=== PATIENT | female | born 1955 | race Caucasian/White ===

== ENCOUNTER 2017-08-19 08:31 | Inpatient (IN) | payer OTHER ==
[~2017-08-19] VITALS: Ht 154.9 cm; Wt 85.4 kg
[~2017-08-19 08:31] MED LIST: AMLO10TA55 PO; ASPI-825 PO; ATOR40TA28 PO; CARV25TA32 PO; FURO20 PO; GLIP10TA9 PO; HYDR12.530 PO; LISI20TA PO; LOSA50TA37 PO; METF500T4 PO; MULT1CAP32 PO; SLOWK8 PO; TRAM50TA4 PO
[2017-08-19] MEDS ORDERED: CLOP75 PO (08:40)
[2017-08-19] MEDS ORDERED: PANT40TA25 PO (08:40)
[2017-08-19 09:19] LABS: BASOPHILS % (AUTO) 0.3 % (0.0-2.0); EOSINOPHILS % (AUTO) 4.3 % (1.0-6.0); HEMATOCRIT 35.6 % (36-46); LYMPHOCYTES # (AUTO) 1.7 K/uL (1.0-4.8); LYMPHOCYTES % (AUTO) 19.9 % (22.0-44.0); MEAN CORPUSCULAR HEMOGLOBIN 29.4 pg (26.0-34.0); MEAN CORPUSCULAR HGB CONC 33.6 G/dL (31.0-37.0); MEAN CORPUSCULAR VOLUME 88 fL (80-100); MONOCYTES # (AUTO) 0.5 K/uL (0.1-1.0); MONOCYTES % (AUTO) 5.8 % (2.0-9.0); NEUTROPHILS % (AUTO) 69.7 % (40.0-70.0); PLATELET COUNT (AUTO) 248 K/uL (150-450); RED BLOOD CELL COUNT(AUTO) 4.07 MIL/uL (4.00-5.20); RED CELL DISTRIBUTION WIDTH 14.9 % (11.5-14.5); WHITE BLOOD COUNT (AUTO) 8.6 K/uL (4.5-11.0)
[2017-08-19 09:31] LABS: ANION GAP 11 mmol/L (8-16); CALCIUM, TOTAL 8.5 mg/dL (8.8-10.5); CARBON DIOXIDE 23 mmol/L (22-29); CHLORIDE 105 mmol/L (98-107); CREATININE 1.45 mg/dL (0.60-1.30); GLOMERULAR FILTR. RATE CALC 36 mL/min (>60); POTASSIUM 4.8 mmol/L (3.5-5.1); SODIUM SERUM 139 mmol/L (136-145); UREA NITROGEN, BLOOD 27 mg/dL (7-18)
[2017-08-19 09:36] LABS: ALANINE AMINOTRANSFERASE 26 U/L (12-78); ALBUMIN 3.3 g/dL (3.4-5.0); ASPARTATE AMINOTRANSFERASE 20 U/L (15-37); BILIRUBIN,TOTAL 0.5 mg/dL (0.1-1.0); CREATINE KINASE, TOTAL 56 U/L (26-192); TOTAL PROTEIN, SERUM 6.8 g/dL (6.4-8.2)
[2017-08-19 09:51] LABS: PROTHROMBIN TIME 10.7 SEC (9.4-11.6)
[2017-08-19 09:57] LABS: B-TYPE NATRIURETIC PEPTIDE 628 pg/mL (0-100)
[2017-08-19 10:00] LABS: APPEARANCE,URINE CLEAR (CLEAR); GLUCOSE, URINE (UA) NEGATIVE (NEGATIVE); KETONES,URINE NEGATIVE (NEGATIVE); LEUKOCYTE ESTERASE ,URINE NEGATIVE (NEGATIVE); OCCULT BLOOD,URINE NEGATIVE (NEGATIVE); PROTEIN,URINE SEE CONFIRM (NEGATIVE)
[2017-08-19] MEDS ORDERED: FUROSEMIDE 40 MG/4 ML VIAL IVP ONE (10:00)
[2017-08-19] MEDS ORDERED: NITROGLYCERIN 2% (1 GM=INCH) PACKET TP ONE (10:00)
[2017-08-19 10:02] LABS: ADD UA MICROSCOPIC YES; SULFOSALICYLIC ACID,URINE 3+ (Negative)
[2017-08-19 10:10] LABS: GLUCOSE,POINT OF CARE 178 MG/DL (70-110)
[2017-08-19 10:10] LABS: RBC,URINE None Seen /HPF (0-2); SQUAMOUS EPITHELIAL CELL,UR Moderate /LPF (None Seen); WBC,URINE None Seen /HPF (0-5)
[2017-08-19 14:15] VITALS: BP 147/57
[2017-08-19] MEDS ORDERED: FURO40 PO (14:32)
[2017-08-19] MEDS ORDERED: INFLUENZA VIRUS VACCINE QVS 2017-18 (3YR+)/PF 60 MCG/0.5 ML SYRINGE IM ONE (14:45)
[2017-08-19 16:53] VITALS: BP 141/75
[2017-08-19 20:13] VITALS: BP 142/67
[2017-08-19] MEDS ORDERED: ONDANSETRON HCL 4 MG/2 ML VIAL IVP PRN (21:15)
[2017-08-19] MEDS ORDERED: BISACODYL 10 MG RECTAL RECTAL SUPPOSITORY PR PRN (21:15)
[2017-08-19] MEDS ORDERED: OxyCODONE HCL/ACETAMINOPHEN 5-325 MG TABLET PO PRN (21:15)
[2017-08-19] MEDS ORDERED: MAGNESIUM HYDROXIDE SUSPENSION 30 ML UDCUP PO PRN (21:15)
[2017-08-19] MEDS ORDERED: ACETAMINOPHEN 325 MG TABLET PO PRN (21:15)
[2017-08-19] MEDS ORDERED: MORPHINE SULFATE 2 MG/ML SYRINGE IVP PRN (21:15)
[2017-08-19] MEDS ORDERED: ALBUTEROL SULFATE 2.5 MG/0.5 ML NEB SOLUTION NEB PRN (21:15)
[2017-08-19] MEDS ORDERED: ZOLPIDEM TARTRATE 5 MG TABLET PO PRN (21:15)
[2017-08-19] MEDS ORDERED: IPRATROPIUM BROMIDE 0.5 MG/2.5 ML NEB SOLUTION NEB PRN (21:15)
[2017-08-20] VITALS (8 sets, daily range): BP systolic 113–169; BP diastolic 57–84
[2017-08-20] MEDS: HEPARIN SODIUM,PORCINE 5,000 UNITS/ML VIAL SQ SCH ×3 (00:39→17:25)
[2017-08-20] MEDS: GlipiZIDE 10 MG TABLET PO SCH ×2 (05:42→17:28)
[2017-08-20] MEDS: POTASSIUM CHLORIDE 8 MEQ ER TABLET PO SCH ×2 (08:25→20:28)
[2017-08-20] MEDS: PANTOPRAZOLE SODIUM 40 MG/VIAL IVP SCH (08:25)
[2017-08-20] MEDS: CARVEDILOL 25 MG TABLET PO SCH ×2 (08:29→20:28)
[2017-08-20] MEDS: AmLODIPine BESYLATE 10 MG TABLET PO SCH (08:29)
[2017-08-20] MEDS: MetFORMIN HCL 500 MG TABLET PO SCH ×2 (08:29→17:56)
[2017-08-20] MEDS: LOSARTAN POTASSIUM 50 MG TABLET PO SCH (08:29)
[2017-08-20] MEDS: MULTIVITAMINS, THERAPEUTIC TABLET PO SCH (08:29)
[2017-08-20] MEDS: DOCUSATE SODIUM 100 MG CAPSULE PO SCH ×2 (08:29→20:28)
[2017-08-20] MEDS: CLOPIDOGREL BISULFATE 75 MG TABLET PO SCH (08:35)
[2017-08-20] MEDS ORDERED: PANTOPRAZOLE SODIUM 40 MG DR TABLET PO SCH (09:00)
[2017-08-20] MEDS: FUROSEMIDE 20 MG/2 ML VIAL IVP SCH ×2 (13:53→20:28)
[2017-08-20] MEDS ORDERED: HydrALAZINE HCL 20 MG/ML VIAL IVP PRN (17:15)
[2017-08-20] MEDS: ATORVASTATIN CALCIUM 40 MG TABLET PO SCH (20:28)
[2017-08-21] MEDS: HEPARIN SODIUM,PORCINE 5,000 UNITS/ML VIAL SQ SCH ×3 (01:17→14:43)
[2017-08-21 04:54] VITALS: BP 151/67
[2017-08-21] MEDS: GlipiZIDE 10 MG TABLET PO SCH ×2 (05:53→17:30)
[2017-08-21 07:34] LABS: BASOPHILS # (AUTO) 0.06 K/uL (0.00-0.20); BASOPHILS % (AUTO) 0.7 % (0.0-2.0); EOSINOPHILS % (AUTO) 3.62 % (1.0-6.0); HEMATOCRIT 34.7 % (36-46); HEMOGLOBIN 11.7 g/dL (12.0-16.0); LYMPHOCYTES # (AUTO) 1.6 K/uL (1.0-4.8); LYMPHOCYTES % (AUTO) 18.7 % (22.0-44.0); MEAN CORPUSCULAR HEMOGLOBIN 29.4 pg (26.0-34.0); MEAN CORPUSCULAR HGB CONC 33.6 G/dL (31.0-37.0); MEAN CORPUSCULAR VOLUME 88 fL (80-100); MONOCYTES # (AUTO) 0.6 K/uL (0.1-1.0); MONOCYTES % (AUTO) 6.7 % (2.0-9.0); NEUTROPHILS # (AUTO) 5.9 K/uL (1.8-7.7); NEUTROPHILS % (AUTO) 70.3 % (40.0-70.0); PLATELET COUNT (AUTO) 252 K/uL (150-450); RED BLOOD CELL COUNT(AUTO) 3.96 MIL/uL (4.00-5.20); RED CELL DISTRIBUTION WIDTH 14.5 % (11.5-14.5); WHITE BLOOD COUNT (AUTO) 8.4 K/uL (4.5-11.0)
[2017-08-21 07:41] VITALS: BP 133/67
[2017-08-21 07:49] LABS: CALCIUM, TOTAL 8.2 mg/dL (8.8-10.5); CREATININE 1.5 mg/dL (0.60-1.30); POTASSIUM 4.6 mmol/L (3.5-5.1)
[2017-08-21] MEDS: MetFORMIN HCL 500 MG TABLET PO SCH ×2 (08:00→17:23)
[2017-08-21] MEDS ORDERED: SESTAMIBI TC99M/UD ISOTOPE 1 EA INJ INJ ONE ×2 (11:40→14:10)
[2017-08-21 13:30] VITALS: BP 151/80
[2017-08-21] MEDS ORDERED: REGADENOSON 0.4 MG/5 ML PF SYRINGE IVP ONE ×2 (14:09→17:03)
[2017-08-21 14:11] VITALS: BP 159/71
[2017-08-21] MEDS: MULTIVITAMINS, THERAPEUTIC TABLET PO SCH (14:43)
[2017-08-21] MEDS: CARVEDILOL 25 MG TABLET PO SCH ×2 (14:43→20:18)
[2017-08-21] MEDS: PANTOPRAZOLE SODIUM 40 MG/VIAL IVP SCH (14:43)
[2017-08-21] MEDS: CLOPIDOGREL BISULFATE 75 MG TABLET PO SCH (14:43)
[2017-08-21] MEDS: DOCUSATE SODIUM 100 MG CAPSULE PO SCH ×2 (14:43→20:18)
[2017-08-21] MEDS: POTASSIUM CHLORIDE 8 MEQ ER TABLET PO SCH ×2 (14:43→20:18)
[2017-08-21] MEDS: LOSARTAN POTASSIUM 50 MG TABLET PO SCH (14:44)
[2017-08-21] MEDS: AmLODIPine BESYLATE 10 MG TABLET PO SCH (14:44)
[2017-08-21 14:53] VITALS: BP 157/85
[2017-08-21] MEDS ORDERED: DEXTROSE 50%-WATER 25 GM/50 ML SYRINGE IVP PRN (17:30)
[2017-08-21] MEDS: INSULIN ASPART 100 UNITS/ML SQ PRN (17:33)
[2017-08-21 19:15] VITALS: BP 135/66
[2017-08-21] MEDS: ATORVASTATIN CALCIUM 40 MG TABLET PO SCH (20:18)
[2017-08-21] MEDS: NYSTATIN 30 GM CREAM TP SCH (20:18)
[2017-08-22] VITALS (7 sets, daily range): BP systolic 121–149; BP diastolic 63–94
[2017-08-22] MEDS: HEPARIN SODIUM,PORCINE 5,000 UNITS/ML VIAL SQ SCH ×4 (00:27→17:16)
[2017-08-22 05:57] LABS: BASOPHILS % (AUTO) 0.6 % (0.0-2.0); EOSINOPHILS % (AUTO) 4.7 % (1.0-6.0); HEMATOCRIT 33.4 % (36-46); HEMOGLOBIN 11.3 g/dL (12.0-16.0); LYMPHOCYTES # (AUTO) 1.9 K/uL (1.0-4.8); LYMPHOCYTES % (AUTO) 24.2 % (22.0-44.0); MEAN CORPUSCULAR HEMOGLOBIN 29.5 pg (26.0-34.0); MEAN CORPUSCULAR HGB CONC 33.8 G/dL (31.0-37.0); MEAN CORPUSCULAR VOLUME 87 fL (80-100); MONOCYTES # (AUTO) 0.6 K/uL (0.1-1.0); MONOCYTES % (AUTO) 7.2 % (2.0-9.0); NEUTROPHILS % (AUTO) 63.3 % (40.0-70.0); PLATELET COUNT (AUTO) 257 K/uL (150-450); RED BLOOD CELL COUNT(AUTO) 3.84 MIL/uL (4.00-5.20); RED CELL DISTRIBUTION WIDTH 14.5 % (11.5-14.5); WHITE BLOOD COUNT (AUTO) 7.9 K/uL (4.5-11.0)
[2017-08-22] MEDS: GlipiZIDE 10 MG TABLET PO SCH ×2 (06:10→17:16)
[2017-08-22] MEDS: INSULIN ASPART 100 UNITS/ML SQ PRN ×3 (06:10→21:08)
[2017-08-22 06:14] LABS: CALCIUM, TOTAL 8.2 mg/dL (8.8-10.5); CREATININE 1.49 mg/dL (0.60-1.30); POTASSIUM 4.6 mmol/L (3.5-5.1)
[2017-08-22] MEDS ORDERED: FUROSEMIDE 20 MG/2 ML VIAL IVP SCH (09:00)
[2017-08-22] MEDS ORDERED: FentaNYL CITRATE-PF 100 MCG/2 ML VIAL ONE (10:23)
[2017-08-22] MEDS ORDERED: LIDOCAINE HCL/PF 1% 30 ML VIAL ONE (10:24)
[2017-08-22] MEDS ORDERED: NITROGLYCERIN 50 MG/D5% WATER 0 ML ONE (10:24)
[2017-08-22] MEDS ORDERED: IOHEXOL 300 MG/ML 150 ML VIAL ONE (10:24)
[2017-08-22] MEDS ORDERED: HEPARIN SODIUM 1000 UNITS/NS 1,000 ML ONE (10:24)
[2017-08-22] MEDS ORDERED: VERAPAMIL HCL 2.5 MG/ML 2 ML VIAL ONE (10:24)
[2017-08-22] MEDS ORDERED: MIDAZOLAM HCL 2 MG/2 ML VIAL ONE (10:24)
[2017-08-22] MEDS ORDERED: 0.9% SODIUM CHLORIDE 10 ML SYRINGE IVP ONE (10:25)
[2017-08-22] MEDS: PANTOPRAZOLE SODIUM 40 MG/VIAL IVP SCH (12:39)
[2017-08-22] MEDS: POTASSIUM CHLORIDE 8 MEQ ER TABLET PO SCH ×2 (12:40→20:58)
[2017-08-22] MEDS: MULTIVITAMINS, THERAPEUTIC TABLET PO SCH (12:40)
[2017-08-22] MEDS: MetFORMIN HCL 500 MG TABLET PO SCH ×2 (12:40→17:16)
[2017-08-22] MEDS: AmLODIPine BESYLATE 10 MG TABLET PO SCH (12:40)
[2017-08-22] MEDS: LOSARTAN POTASSIUM 50 MG TABLET PO SCH (12:40)
[2017-08-22] MEDS: FUROSEMIDE 20 MG TABLET PO SCH (12:41)
[2017-08-22] MEDS: CARVEDILOL 25 MG TABLET PO SCH ×2 (12:41→20:58)
[2017-08-22] MEDS: CLOPIDOGREL BISULFATE 75 MG TABLET PO SCH (12:41)
[2017-08-22] MEDS: DOCUSATE SODIUM 100 MG CAPSULE PO SCH ×2 (12:41→20:58)
[2017-08-22] MEDS: NYSTATIN 30 GM CREAM TP SCH ×2 (12:42→20:59)
[2017-08-22 19:53] LABS: GLUCOSE,POINT OF CARE 131 MG/DL (70-110)
[2017-08-22 19:59] LABS: GLUCOSE,POINT OF CARE 252 MG/DL (70-110)
[2017-08-22 19:59] LABS: GLUCOSE COMMENT 1 Received Meds; GLUCOSE,POINT OF CARE 161 MG/DL (70-110)
[2017-08-22 20:03] LABS: GLUCOSE COMMENT 1 Received Meds; GLUCOSE,POINT OF CARE 141 MG/DL (70-110)
[2017-08-22] MEDS: ATORVASTATIN CALCIUM 40 MG TABLET PO SCH (20:58)
[2017-08-23 00:02] LABS: GLUCOSE,POINT OF CARE 161 MG/DL (70-110)
[2017-08-23] MEDS: HEPARIN SODIUM,PORCINE 5,000 UNITS/ML VIAL SQ SCH ×4 (00:51→23:27)
[2017-08-23 03:23] VITALS: BP 138/65
[2017-08-23] MEDS: GlipiZIDE 10 MG TABLET PO SCH ×2 (05:32→17:23)
[2017-08-23 06:02] LABS: BASOPHILS % (AUTO) 0.4 % (0.0-2.0); EOSINOPHILS % (AUTO) 5.4 % (1.0-6.0); HEMATOCRIT 33.7 % (36-46); HEMOGLOBIN 11.2 g/dL (12.0-16.0); LYMPHOCYTES # (AUTO) 2.2 K/uL (1.0-4.8); LYMPHOCYTES % (AUTO) 26.2 % (22.0-44.0); MEAN CORPUSCULAR HGB CONC 33.3 G/dL (31.0-37.0); MEAN CORPUSCULAR VOLUME 87 fL (80-100); MONOCYTES # (AUTO) 0.6 K/uL (0.1-1.0); MONOCYTES % (AUTO) 7.7 % (2.0-9.0); NEUTROPHILS % (AUTO) 60.3 % (40.0-70.0); PLATELET COUNT (AUTO) 265 K/uL (150-450); RED BLOOD CELL COUNT(AUTO) 3.87 MIL/uL (4.00-5.20); RED CELL DISTRIBUTION WIDTH 14.7 % (11.5-14.5); WHITE BLOOD COUNT (AUTO) 8.3 K/uL (4.5-11.0)
[2017-08-23 06:33] LABS: CALCIUM, TOTAL 8.7 mg/dL (8.8-10.5); CREATININE 1.39 mg/dL (0.60-1.30); POTASSIUM 4.6 mmol/L (3.5-5.1)
[2017-08-23 07:29] VITALS: BP 148/55
[2017-08-23] MEDS: AmLODIPine BESYLATE 10 MG TABLET PO SCH (08:50)
[2017-08-23] MEDS: CARVEDILOL 25 MG TABLET PO SCH ×2 (08:50→20:42)
[2017-08-23] MEDS: PANTOPRAZOLE SODIUM 40 MG/VIAL IVP SCH (08:50)
[2017-08-23] MEDS: LOSARTAN POTASSIUM 50 MG TABLET PO SCH (08:50)
[2017-08-23] MEDS: POTASSIUM CHLORIDE 8 MEQ ER TABLET PO SCH ×2 (08:51→20:42)
[2017-08-23] MEDS: NYSTATIN 30 GM CREAM TP SCH ×2 (08:51→20:43)
[2017-08-23] MEDS: MULTIVITAMINS, THERAPEUTIC TABLET PO SCH (08:51)
[2017-08-23] MEDS: FUROSEMIDE 20 MG TABLET PO SCH (08:51)
[2017-08-23] MEDS: CLOPIDOGREL BISULFATE 75 MG TABLET PO SCH (08:51)
[2017-08-23] MEDS: DOCUSATE SODIUM 100 MG CAPSULE PO SCH ×2 (08:51→20:42)
[2017-08-23 11:25] VITALS: BP 139/60
[2017-08-23] MEDS: INSULIN ASPART 100 UNITS/ML SQ PRN ×3 (11:34→20:44)
[2017-08-23 15:19] VITALS: BP 113/70
[2017-08-23 19:53] VITALS: BP 126/61
[2017-08-23] MEDS: ATORVASTATIN CALCIUM 40 MG TABLET PO SCH (20:42)
[2017-08-23 22:37] LABS: GLUCOSE,POINT OF CARE 93 MG/DL (70-110)
[2017-08-23 22:38] LABS: GLUCOSE COMMENT 1 Repeated; GLUCOSE,POINT OF CARE 199 MG/DL (70-110)
[2017-08-23 23:25] VITALS: BP 133/66
[2017-08-24 03:44] VITALS: BP 126/67
[2017-08-24] MEDS: GlipiZIDE 10 MG TABLET PO SCH ×2 (05:45→17:14)
[2017-08-24] MEDS: INSULIN ASPART 100 UNITS/ML SQ PRN ×4 (05:48→20:01)
[2017-08-24 07:39] VITALS: BP 141/75
[2017-08-24] MEDS: MULTIVITAMINS, THERAPEUTIC TABLET PO SCH (08:12)
[2017-08-24] MEDS: AmLODIPine BESYLATE 10 MG TABLET PO SCH (08:12)
[2017-08-24] MEDS: FUROSEMIDE 20 MG TABLET PO SCH (08:12)
[2017-08-24] MEDS: CARVEDILOL 25 MG TABLET PO SCH ×2 (08:12→19:58)
[2017-08-24] MEDS: PANTOPRAZOLE SODIUM 40 MG/VIAL IVP SCH (08:12)
[2017-08-24] MEDS: HEPARIN SODIUM,PORCINE 5,000 UNITS/ML VIAL SQ SCH ×2 (08:12→17:14)
[2017-08-24] MEDS: CLOPIDOGREL BISULFATE 75 MG TABLET PO SCH (08:12)
[2017-08-24] MEDS: LOSARTAN POTASSIUM 50 MG TABLET PO SCH (08:12)
[2017-08-24] MEDS: POTASSIUM CHLORIDE 8 MEQ ER TABLET PO SCH ×2 (08:12→19:58)
[2017-08-24] MEDS: DOCUSATE SODIUM 100 MG CAPSULE PO SCH ×2 (08:12→19:58)
[2017-08-24] MEDS: NYSTATIN 30 GM CREAM TP SCH ×2 (08:20→19:58)
[2017-08-24 11:29] VITALS: BP 142/70
[2017-08-24 12:12] LABS: GLUCOSE,POINT OF CARE 123 MG/DL (70-110)
[2017-08-24 12:18] LABS: GLUCOSE COMMENT 1 Received Meds; GLUCOSE,POINT OF CARE 166 MG/DL (70-110)
[2017-08-24 16:01] VITALS: BP 130/98
[2017-08-24 17:28] LABS: GLUCOSE COMMENT 1 Received Meds; GLUCOSE,POINT OF CARE 189 MG/DL (70-110)
[2017-08-24] MEDS: ATORVASTATIN CALCIUM 40 MG TABLET PO SCH (19:58)
[2017-08-24 20:06] VITALS: BP 141/76
[2017-08-24 23:12] VITALS: BP 126/62
[2017-08-25 04:12] VITALS: BP 143/68
[2017-08-25] MEDS: GlipiZIDE 10 MG TABLET PO SCH ×2 (06:22→18:06)
[2017-08-25 07:17] LABS: GLUCOSE COMMENT 1 Received Meds; GLUCOSE,POINT OF CARE 186 MG/DL (70-110)
[2017-08-25 07:17] LABS: GLUCOSE,POINT OF CARE 127 MG/DL (70-110)
[2017-08-25 07:19] LABS: ANION GAP 6 mmol/L (8-16); CALCIUM, TOTAL 8.8 mg/dL (8.8-10.5); CARBON DIOXIDE 29 mmol/L (22-29); CHLORIDE 104 mmol/L (98-107); CREATINE KINASE, TOTAL 44 U/L (26-192); CREATININE 1.58 mg/dL (0.60-1.30); GLOMERULAR FILTR. RATE CALC 33 mL/min (>60); POTASSIUM 4.8 mmol/L (3.5-5.1); SODIUM SERUM 139 mmol/L (136-145); UREA NITROGEN, BLOOD 39 mg/dL (7-18)
[2017-08-25 07:33] LABS: B-TYPE NATRIURETIC PEPTIDE 900 pg/mL (0-100)
[2017-08-25 07:34] VITALS: BP 145/56
[2017-08-25] MEDS: CLOPIDOGREL BISULFATE 75 MG TABLET PO SCH (07:53)
[2017-08-25] MEDS: HEPARIN SODIUM,PORCINE 5,000 UNITS/ML VIAL SQ SCH ×3 (07:53→17:01)
[2017-08-25] MEDS: DOCUSATE SODIUM 100 MG CAPSULE PO SCH ×2 (07:54→21:00)
[2017-08-25] MEDS: MULTIVITAMINS, THERAPEUTIC TABLET PO SCH (07:55)
[2017-08-25] MEDS: LOSARTAN POTASSIUM 50 MG TABLET PO SCH (08:02)
[2017-08-25] MEDS: AmLODIPine BESYLATE 10 MG TABLET PO SCH (08:02)
[2017-08-25] MEDS: PANTOPRAZOLE SODIUM 40 MG/VIAL IVP SCH (08:02)
[2017-08-25] MEDS: CARVEDILOL 25 MG TABLET PO SCH ×2 (08:02→21:10)
[2017-08-25] MEDS: FUROSEMIDE 20 MG TABLET PO SCH ×2 (08:03→12:03)
[2017-08-25] MEDS: POTASSIUM CHLORIDE 8 MEQ ER TABLET PO SCH ×2 (08:06→21:02)
[2017-08-25] MEDS: NYSTATIN 30 GM CREAM TP SCH ×2 (08:07→21:00)
[2017-08-25 09:09] LABS: GLUCOSE,POINT OF CARE 158 MG/DL (70-110)
[2017-08-25] MEDS: INSULIN ASPART 100 UNITS/ML SQ PRN ×2 (12:07→21:08)
[2017-08-25 12:11] VITALS: BP 138/78
[2017-08-25 15:50] VITALS: BP 112/56
[2017-08-25 19:33] VITALS: BP 134/68
[2017-08-25] MEDS: ATORVASTATIN CALCIUM 40 MG TABLET PO SCH (21:02)
[2017-08-25] MEDS: ACETYLCYSTEINE 20% 200 MG/ML 4 ML ORAL SOLUTION PO SCH (21:03)
[2017-08-25 23:23] VITALS: BP 139/66
[2017-08-25 23:48] LABS: GLUCOSE,POINT OF CARE 97 MG/DL (70-110)
[2017-08-25 23:48] LABS: GLUCOSE COMMENT 1 Received Meds; GLUCOSE,POINT OF CARE 254 MG/DL (70-110)
[2017-08-26 05:31] VITALS: BP 133/58
[2017-08-26 06:28] LABS: GLUCOSE,POINT OF CARE 262 MG/DL (70-110)
[2017-08-26 06:29] LABS: CALCIUM, TOTAL 8.9 mg/dL (8.8-10.5); CREATININE 1.83 mg/dL (0.60-1.30); MAGNESIUM 2.3 mg/dL (1.80-2.40); POTASSIUM 4.8 mmol/L (3.5-5.1)
[2017-08-26] MEDS: GlipiZIDE 10 MG TABLET PO SCH ×2 (06:30→18:16)
[2017-08-26] MEDS ORDERED: SODIUM CHLORIDE 0.9% 1,000 ML IV ONE (06:30)
[2017-08-26] MEDS: INSULIN ASPART 100 UNITS/ML SQ PRN ×2 (06:33→12:46)
[2017-08-26 07:17] VITALS: BP 157/98
[2017-08-26] MEDS: HEPARIN SODIUM,PORCINE 5,000 UNITS/ML VIAL SQ SCH ×3 (08:00→16:40)
[2017-08-26] MEDS: DOCUSATE SODIUM 100 MG CAPSULE PO SCH ×2 (08:45→20:34)
[2017-08-26] MEDS: PANTOPRAZOLE SODIUM 40 MG/VIAL IVP SCH (08:45)
[2017-08-26] MEDS: AmLODIPine BESYLATE 10 MG TABLET PO SCH (08:46)
[2017-08-26] MEDS: MULTIVITAMINS, THERAPEUTIC TABLET PO SCH (08:46)
[2017-08-26] MEDS: POTASSIUM CHLORIDE 8 MEQ ER TABLET PO SCH ×2 (08:46→20:29)
[2017-08-26] MEDS: CARVEDILOL 25 MG TABLET PO SCH ×2 (08:47→20:29)
[2017-08-26 08:48] LABS: APPEARANCE,URINE CLEAR (CLEAR); GLUCOSE, URINE (UA) NEGATIVE (NEGATIVE); KETONES,URINE NEGATIVE (NEGATIVE); LEUKOCYTE ESTERASE ,URINE NEGATIVE (NEGATIVE); OCCULT BLOOD,URINE NEGATIVE (NEGATIVE); PROTEIN,URINE SEE CONFIRM (NEGATIVE)
[2017-08-26] MEDS: NYSTATIN 30 GM CREAM TP SCH ×2 (08:48→20:35)
[2017-08-26] MEDS: CLOPIDOGREL BISULFATE 75 MG TABLET PO SCH (08:48)
[2017-08-26] MEDS: ACETYLCYSTEINE 20% 200 MG/ML 4 ML ORAL SOLUTION PO SCH ×2 (08:48→20:30)
[2017-08-26 09:00] LABS: ADD UA MICROSCOPIC YES
[2017-08-26 09:05] LABS: SULFOSALICYLIC ACID,URINE 1+ (Negative)
[2017-08-26 09:06] LABS: RBC,URINE None Seen /HPF (0-2); SQUAMOUS EPITHELIAL CELL,UR Few /LPF (None Seen); WBC,URINE 0-2 /HPF (0-5)
[2017-08-26 11:31] VITALS: BP 143/53
[2017-08-26 15:33] VITALS: BP 147/87
[2017-08-26 19:32] VITALS: BP 153/75
[2017-08-26 19:33] LABS: GLUCOSE COMMENT 1 Received Meds; GLUCOSE,POINT OF CARE 198 MG/DL (70-110)
[2017-08-26] MEDS: ATORVASTATIN CALCIUM 40 MG TABLET PO SCH (20:29)
[2017-08-27] VITALS (13 sets, daily range): BP systolic 101–145; BP diastolic 58–81
[2017-08-27 00:08] LABS: GLUCOSE COMMENT 1 Received Meds; GLUCOSE,POINT OF CARE 180 MG/DL (70-110)
[2017-08-27 00:13] LABS: GLUCOSE,POINT OF CARE 89 MG/DL (70-110)
[2017-08-27 00:14] LABS: GLUCOSE COMMENT 1 Received Meds; GLUCOSE,POINT OF CARE 141 MG/DL (70-110)
[2017-08-27 00:42] LABS: GLUCOSE,POINT OF CARE 244 MG/DL (70-110)
[2017-08-27] MEDS: GlipiZIDE 10 MG TABLET PO SCH ×2 (05:41→17:00)
[2017-08-27 06:34] LABS: CALCIUM, TOTAL 8.8 mg/dL (8.8-10.5); CREATININE 1.53 mg/dL (0.60-1.30)
[2017-08-27] MEDS ORDERED: MetFORMIN HCL 500 MG TABLET PO SCH (08:00)
[2017-08-27] MEDS: HEPARIN SODIUM,PORCINE 5,000 UNITS/ML VIAL SQ SCH ×3 (08:00→20:02)
[2017-08-27] MEDS: CARVEDILOL 25 MG TABLET PO SCH ×2 (08:52→21:23)
[2017-08-27] MEDS: PANTOPRAZOLE SODIUM 40 MG/VIAL IVP SCH (08:52)
[2017-08-27] MEDS: MULTIVITAMINS, THERAPEUTIC TABLET PO SCH (08:52)
[2017-08-27] MEDS: AmLODIPine BESYLATE 10 MG TABLET PO SCH (08:52)
[2017-08-27] MEDS: DOCUSATE SODIUM 100 MG CAPSULE PO SCH ×2 (08:52→21:23)
[2017-08-27] MEDS: POTASSIUM CHLORIDE 8 MEQ ER TABLET PO SCH ×2 (08:52→21:24)
[2017-08-27] MEDS: NYSTATIN 30 GM CREAM TP SCH ×2 (08:53→21:24)
[2017-08-27] MEDS: ACETYLCYSTEINE 20% 200 MG/ML 4 ML ORAL SOLUTION PO SCH (08:53)
[2017-08-27] MEDS: CLOPIDOGREL BISULFATE 75 MG TABLET PO SCH (09:00)
[2017-08-27] MEDS ORDERED: SODIUM BICARBONATE 150 MEQ in DEXTROSE 5%-WATER 850 ML IV ONE (11:30)
[2017-08-27] MEDS ORDERED: FentaNYL CITRATE-PF 100 MCG/2 ML VIAL ONE (11:39)
[2017-08-27] MEDS ORDERED: LIDOCAINE HCL/PF 1% 30 ML VIAL ONE (11:39)
[2017-08-27] MEDS ORDERED: MIDAZOLAM HCL 2 MG/2 ML VIAL ONE (11:39)
[2017-08-27] MEDS ORDERED: 0.9% SODIUM CHLORIDE 10 ML SYRINGE IVP ONE (11:40)
[2017-08-27] MEDS ORDERED: HEPARIN SODIUM 1000 UNITS/NS 1,000 ML ONE (11:40)
[2017-08-27] MEDS ORDERED: IOHEXOL 300 MG/ML 150 ML VIAL ONE (11:40)
[2017-08-27] MEDS ORDERED: VERAPAMIL HCL 2.5 MG/ML 2 ML VIAL ONE (11:41)
[2017-08-27] MEDS ORDERED: NITROGLYCERIN 50 MG/D5% WATER 250 ML ONE (11:42)
[2017-08-27] MEDS ORDERED: HEPARIN SODIUM,PORCINE 1,000 UNITS/ML 10 ML VIAL ONE (11:42)
[2017-08-27] MEDS ORDERED: MIDAZOLAM HCL 2 MG/2 ML VIAL IVP ONE (12:05)
[2017-08-27] MEDS ORDERED: FentaNYL CITRATE-PF 100 MCG/2 ML VIAL IVP ONE (12:05)
[2017-08-27] MEDS ORDERED: LIDOCAINE HCL/PF 1% 30 ML VIAL INJ ONE (12:07)
[2017-08-27] MEDS ORDERED: HEPARIN SODIUM 1000 UNITS/NS 1,000 ML IARTER ONE (12:11)
[2017-08-27] MEDS ORDERED: IOHEXOL 300 MG/ML 150 ML VIAL IARTER ONE (12:13)
[2017-08-27] MEDS ORDERED: CLOPIDOGREL BISULFATE 75 MG TABLET PO ONE ×2 (12:57→13:51)
[2017-08-27] MEDS ORDERED: ASPIRIN 325 MG TABLET PO ONE (12:57)
[2017-08-27] MEDS ORDERED: HEPARIN SODIUM,PORCINE 5,000 UNITS/ML VIAL IVP ONE ×2 (13:03→13:20)
[2017-08-27] MEDS ORDERED: ASPIRIN 325 MG TABLET ONE (13:06)
[2017-08-27] MEDS ORDERED: CLOPIDOGREL BISULFATE 75 MG TABLET ONE ×2 (13:07→13:52)
[2017-08-27] MEDS ORDERED: IOHEXOL 300 MG/ML 100 ML VIAL ONE (13:13)
[2017-08-27] MEDS ORDERED: ONDANSETRON HCL 4 MG/2 ML VIAL IVP ONE (13:13)
[2017-08-27] MEDS ORDERED: IOHEXOL 300 MG/ML 50 ML VIAL ONE (13:13)
[2017-08-27] MEDS ORDERED: ONDANSETRON HCL 4 MG/2 ML VIAL ONE (13:17)
[2017-08-27] MEDS ORDERED: VERAPAMIL HCL 2.5 MG/ML 2 ML VIAL ICOR ONE ×3 (13:29→13:39)
[2017-08-27 13:47] LABS: GLUCOSE COMMENT 1 Received Meds; GLUCOSE,POINT OF CARE 152 MG/DL (70-110)
[2017-08-27 15:27] LABS: GLUCOSE,POINT OF CARE 185 MG/DL (70-110)
[2017-08-28] VITALS (8 sets, daily range): BP systolic 122–141; BP diastolic 56–73
[2017-08-28] MEDS: HEPARIN SODIUM,PORCINE 5,000 UNITS/ML VIAL SQ SCH ×4 (01:15→23:54)
[2017-08-28] MEDS: ATORVASTATIN CALCIUM 40 MG TABLET PO SCH ×2 (01:15→21:43)
[2017-08-28] MEDS: ACETYLCYSTEINE 20% 200 MG/ML 4 ML ORAL SOLUTION PO SCH ×3 (01:15→21:45)
[2017-08-28] MEDS: GlipiZIDE 10 MG TABLET PO SCH ×2 (05:40→18:11)
[2017-08-28] MEDS: INSULIN ASPART 100 UNITS/ML SQ PRN ×3 (05:44→18:03)
[2017-08-28] MEDS: DOCUSATE SODIUM 100 MG CAPSULE PO SCH ×2 (08:23→21:43)
[2017-08-28] MEDS: AmLODIPine BESYLATE 10 MG TABLET PO SCH (08:23)
[2017-08-28] MEDS: MULTIVITAMINS, THERAPEUTIC TABLET PO SCH (08:24)
[2017-08-28] MEDS: ASPIRIN 81 MG CHEWABLE TABLET PO SCH (08:24)
[2017-08-28] MEDS: PANTOPRAZOLE SODIUM 40 MG/VIAL IVP SCH (08:24)
[2017-08-28] MEDS: CLOPIDOGREL BISULFATE 75 MG TABLET PO SCH (08:24)
[2017-08-28] MEDS: POTASSIUM CHLORIDE 8 MEQ ER TABLET PO SCH (08:38)
[2017-08-28] MEDS: NYSTATIN 30 GM CREAM TP SCH ×2 (08:38→21:45)
[2017-08-28 11:36] LABS: GLUCOSE,POINT OF CARE 116 MG/DL (70-110)
[2017-08-28 11:47] LABS: GLUCOSE COMMENT 1 Repeated; GLUCOSE,POINT OF CARE 141 MG/DL (70-110)
[2017-08-28 11:53] LABS: CREATININE 1.56 mg/dL (0.60-1.30); POTASSIUM 5.3 mmol/L (3.5-5.1)
[2017-08-28 11:57] LABS: MAGNESIUM 2.4 mg/dL (1.80-2.40); PHOSPHORUS 4.7 mg/dL (2.5-4.9)
[2017-08-28] MEDS: CARVEDILOL 25 MG TABLET PO SCH ×2 (12:00→21:44)
[2017-08-29 00:12] VITALS: BP 112/52
[2017-08-29 04:22] VITALS: BP 107/57
[2017-08-29] MEDS: GlipiZIDE 10 MG TABLET PO SCH (06:13)
[2017-08-29 07:08] LABS: CALCIUM, TOTAL 8.4 mg/dL (8.8-10.5); CREATININE 1.78 mg/dL (0.60-1.30); MAGNESIUM 2.2 mg/dL (1.80-2.40); PHOSPHORUS 4.5 mg/dL (2.5-4.9); POTASSIUM 4.6 mmol/L (3.5-5.1)
[2017-08-29 07:27] VITALS: BP 138/71
[2017-08-29] MEDS: PANTOPRAZOLE SODIUM 40 MG/VIAL IVP SCH (10:15)
[2017-08-29] MEDS: HEPARIN SODIUM,PORCINE 5,000 UNITS/ML VIAL SQ SCH (10:15)
[2017-08-29] MEDS: NYSTATIN 30 GM CREAM TP SCH (10:16)
[2017-08-29] MEDS: ASPIRIN 81 MG CHEWABLE TABLET PO SCH (10:16)
[2017-08-29] MEDS: CARVEDILOL 25 MG TABLET PO SCH (10:16)
[2017-08-29] MEDS: MULTIVITAMINS, THERAPEUTIC TABLET PO SCH (10:16)
[2017-08-29] MEDS: CLOPIDOGREL BISULFATE 75 MG TABLET PO SCH (10:16)
[2017-08-29] MEDS: AmLODIPine BESYLATE 10 MG TABLET PO SCH (10:16)
[2017-08-29] MEDS: DOCUSATE SODIUM 100 MG CAPSULE PO SCH (10:17)
[2017-08-29 11:41] VITALS: BP 143/55
[2017-08-29] MEDS: INSULIN ASPART 100 UNITS/ML SQ PRN (12:17)
[2017-08-29 15:33] VITALS: BP 130/68
[2017-08-29] MEDS ORDERED: FURO-152 PO (16:08)
[2017-08-29 17:38] LABS: GLUCOSE COMMENT 1 Received Meds; GLUCOSE,POINT OF CARE 202 MG/DL (70-110)
[2017-08-29 17:38] LABS: GLUCOSE,POINT OF CARE 188 MG/DL (70-110)
[2017-08-30 20:13] LABS: GLUCOSE,POINT OF CARE 137 MG/DL (70-110)
[2017-08-30 20:13] LABS: GLUCOSE,POINT OF CARE 139 MG/DL (70-110)
[2017-08-30 20:13] LABS: GLUCOSE COMMENT 1 Received Meds; GLUCOSE,POINT OF CARE 183 MG/DL (70-110)
[2017-10-13] MEDS ORDERED: SODIUM CHLORIDE 0.9% 500 ML IV ONE (11:51)
== END 2017-08-29 18:51 | disposition home or self-care (01) | DRG 167 ==
LOC: EMS 08:34 → 5N 12:15 → 5S 08-23 16:37 → ICU 08-27 15:01 → 5S 08-27 23:45
PROVIDERS: ADMIT Hospitalist; ATTEND Hospitalist
PROC: 02W Heart and Great Vessels, Revision (ICD-10-PCS; principal; 2017-08-27)
PROC: 4A023N7 Measurement of Cardiac Sampling and Pressure, Left Heart, Percutaneous Approach (ICD-10-PCS; 2017-08-27)
PROC: B2131ZZ Fluoroscopy of Multiple Coronary Artery Bypass Grafts using Low Osmolar Contrast (ICD-10-PCS; 2017-08-27)
PROC: B2151ZZ Fluoroscopy of Left Heart using Low Osmolar Contrast (ICD-10-PCS; 2017-08-27)
PROC: B2111ZZ Fluoroscopy of Multiple Coronary Arteries using Low Osmolar Contrast (ICD-10-PCS; 2017-08-27)
PROC: 027034Z Dilation of Coronary Artery, One Artery with Drug-eluting Intraluminal Device, Percutaneous Approach (ICD-10-PCS; 2017-08-27)
PROC: 06C Lower Veins, Extirpation (ICD-10-PCS; 2017-08-27)
DX: T82.218A Other mechanical complication of coronary artery bypass graft, initial encounter (principal); I21.A9 Other myocardial infarction type; I50.21 Acute systolic (congestive) heart failure; I47.2 Ventricular tachycardia; N17.9 Acute kidney failure, unspecified; N18.3 Chronic kidney disease, stage 3 (moderate); I13.0 Hypertensive heart and chronic kidney disease with heart failure and stage 1 through stage 4 chronic kidney disease, or unspecified chronic kidney disease; E11.22 Type 2 diabetes mellitus with diabetic chronic kidney disease; I25.10 Atherosclerotic heart disease of native coronary artery without angina pectoris; E78.00 Pure hypercholesterolemia, unspecified; E78.5 Hyperlipidemia, unspecified; I25.5 Ischemic cardiomyopathy; Z95.1 Presence of aortocoronary bypass graft; Z98.61 Coronary angioplasty status
CPT/HCPCS: 76770; 78452; 82570; 82962; 83735; 84100; 84156; 84300; 84540; 90471; 92920; 92928; 93005; 93017; 93306; 96374; 99285; A9500; C9113; J1644; J1940; J2250; J2405; J2785; J3010; J3490; J7030; J7060; Q9967